=== PATIENT | male | born 1960 | race Caucasian/White ===

== ENCOUNTER → 2020-03-09 09:44 | Outpatient (CLI) | payer BC | END | disposition home or self-care (01) | LOC: D.HCCARDIO 09:44 | PROVIDERS: ATTEND Internal Medicine Cardiovascular Disease | DX: I20.9 Angina pectoris, unspecified (principal) ==

== ENCOUNTER 2020-03-22 07:06 | Day surgery (SDC) | payer BC ==
[~2020-03-22] VITALS: Ht 172.7 cm; Wt 106.6 kg
--- NOTE | ~2020-03-22 | HEMODYNAMI ---
PATIENT:ERIC BLOOD MEDICAL RECORD: [id number] : 60 LOCATION:[facility] ADMISSION DATE: 03/22/20 Generatedon:03/22/20209:33 Patient name: ERIC BLOOD Patient #: [id number] SSN: [id number] : 1960 Date of study: 03/22/2020 Page: Of Hemodynamic Procedure Report Patient Data Patient Demographics Procedure consent was obtained First Name: ERIC Gender: Male Last Name: CAITIE : 1960 [facility] Initial: BISHNU Age: 59 year(s) Patient #: [id number] Race: SSN: [id number] Additional ID: [id number] Contact details Address: [address] [place] [address] lane State: [place] City: [place] Zip code: [address] Admission Admission Data Admission Date: 03/22/2020 Admission Time: 7:06 Arrival Date: 03/22/2020 Arrival Time: 0:00 Admit Source: Other Insurance Payor: Private health insurance [facility] #: [id number] Height (in.): 68 BSA: 2.2 (m2) Height (cm.): 172.72 BMI: 36.19 (kg/m2) Weight (lbs.): 238 Weight (kg.): 107.95 Lab Results Lab Result Date: 03/22/2020 Lab Result Time: 0:00 Biochemistry Name Units Result Min Max BUN mg/dl 17 --(---*)-- 7 18 Creatinine mg/dl 1 --(--*-)-- 0.6 1.3 CBC Name Units Result Min Max Hemoglobin g/dl 16.3 --(--*-)-- 13.5 17.5 Procedure Procedure Types Cath Procedure Diagnostic Procedure [facility] w/Coronaries Sedation Charges Moderate Sedation up to 15 minutes Procedure Description Procedure Date Procedure Date: 03/22/2020 Procedure Start Time: 9:20 Procedure End Time: 9:32 Procedure Staff Name Function Dmitri Mcneill MD Performing Physician Kristin PETERSON Monitor Debbie Moreland RT Scrub Yin King RN Nurse Procedure Data Cath Procedure Fluoroscopy Diagnostic fluoroscopy Total fluoroscopy Time: 1.7 time: 1.7 min min Diagnostic fluoroscopy Total fluoroscopy dose: 726 dose: 726 mGy mGy Contrast Material Contrast Material Type Amount (ml) Isovue 300 64 Entry Location Entry Primary Successful Side Size Upsize Upsize Entry Closure Succes sful Closure Location (Fr) 1 (Fr) 2 (Fr) Remarks Device Remarks Femoral Right 5 Fr Exoseal artery Estimated blood loss: 5 ml Diagnostic catheters Device Type Used For End Catheter Placement MULTIPACK JL 4.0 5Fr Left Coronary catheter Angiography MULTIPACK 3DRC 5Fr Right Coronary catheter Angiography MULTIPACK Pigtail 5 Fr LV Angiography catheter Procedure Complications No complications Procedure Medications Medication Administration Route Dosage Oxygen etCO2 Nasal cannula 2 l/min Lidocaine 2% added to field 20 Heparin Flush Bag added to field 2 bags (1000units/500ml NS) 0.9% NaCl I.V. 100 ml/hr Versed I.V. 2 mg Fentanyl I.V. 50 mcg Versed I.V. 1 mg Fentanyl I.V. 50 mcg Versed I.V. 1 mg Fentanyl I.V. 50 mcg Fentanyl I.V. 50 mcg Hemodynamics Rest BSA: 2.2 (m2) HGB: 16.3 (g/dl) O2 Consumption: Estimated: 269.88 (ml/min) O2 Con sumption indexed: Estimated:122.67 (ml/min/m) Heart Rate: 83 (bpm) Pressure Samples Time Site Value (mmHg) Purpose Heart Use Rate(bpm) 9:28 LV 137/-4,19 Snapshot 86 Gradients Valve Time Site Site Mean SEP/DFP Peak To Heart Use 1 2 (mmHg) (sec/min) Peak Rate (mmHg) (bpm) Aortic 9:28 LV AO 84 Snapshots Pre Cath Intra NCS Post Cath Vital Signs Time Heart Resp SPO2 etCO2 NIBP (mmHg) Rhythm Pain Sedation Rate (ipm) (%) (mmHg) Status Level (bpm) 8:57:46 76 12 96 33.9 130/75(104) NSR 0 (11) 10(A) , No pain 9:02:06 84 17 93 13.5 125/78(100) NSR 0 (11) 10(A) , No pain 9:06:22 81 15 94 36.2 118/78(101) NSR 0 (11) 10(A) , No pain 9:11:07 78 15 95 32.4 124/77(95) NSR 0 (11) 10(A) , No pain 9:15:25 84 13 93 33.9 119/73(96) NSR 0 (11) 10(A) , No pain 9:19:39 83 12 94 0 118/81(101) NSR 0 (11) 9(A) , No pain 9:23:51 83 16 93 35.4 122/82(101) NSR 0 (11) 9(A) , No pain 9:28:03 84 16 93 33.1 131/84(105) NSR 0 (11) 10(A) , No pain 9:32:15 86 19 94 40.7 131/85(99) NSR 0 (11) 10(A) , No pain Medications Time Medication Route Dose Verified Delivered Reason Notes Effe ctiveness by by 9:00:07 0.9% NaCl I.V. 100 Dmitri Buffie Per ml/hr Osito King RN physician 9:00:47 Oxygen etCO2 2 Dmitri Buffie used for Nasal l/min Osito King RN procedure cannula 9:00:53 Lidocaine 2% added 20ml Dmitri Dmitri for local to vial Osito Mcneill MD anesthetic field 9:00:59 Heparin Flush added 2 Dmitri Dmitri used for Bag to bags Osito Mcneill MD procedure (1000units/500ml field NS) 9:06:27 Versed I.V. 2 mg Dmitri Buffie for Osito King RN sedation 9:06:32 Fentanyl I.V. 50 Dmitri Buffie for mcg sOito King RN sedation 9:11:47 Versed I.V. 1 mg Dmitri Buffie for Osito King RN sedation 9:12:00 Fentanyl I.V. 50 Dmitri Buffie for mcg Osito King RN sedation 9:16:11 Versed I.V. 1 mg Dmitri Buffie for Osito King RN sedation 9:22:37 Fentanyl I.V. 50 Dmitri Buffie for mcg Osito King RN sedation 9:28:38 Fentanyl I.V. 50 Dmitri Buffie for mcg Osito King RN sedation Procedure Log Time Note 8:28:05 Informed consent obtained and on chart 8:29:28 Diagnostic Cath Status : Elective 8:29:44 Arrival Date: 03/22/2020 12:00:00 AM 8:29:46 Admit Source: Other 8:29:48 Insurance Payor : Private health insurance 8:30:53 Patient Height : 68 inches 8:30:57 Patient Weight : 238 lbs 8:31:37 Procedure Status Elective Heart Cath (OP). 8:31:40 Time tracking: Regular hours (M-F 7:00 - 5:00) 8:31:44 Plan of Care:Hemodynamics will remain stable., Cardiac rhythm will remain stable., Comfort level will be maintained., Respiratory function will remain adequate., Patient/ family verbilizes understanding of procedure., Procedure tolerated without complication., Recovers from procedure without complications.. 8:31:54 H&P Date Dictated: 02/19/2020 Within 30 days and on chart.. 8:31:57 Pre-procedure instructions explained to patient. 8:31:57 Pre-op teaching completed and patient verbalized understanding. 8:31:59 Family unavailable. 8:32:01 Patient NPO since Midnight. 8:40:21 Yin King RN sent for patient. Start room use. 8:48:17 Patient received from Pre/Post Procedure Room to CCL 2 Alert and oriented. Tansferred to table in Supine position. 8:48:18 Warm blankets applied, and abdi hugger turned on for patient comfort. 8:48:18 Correct patient and procedure confirmed by team. 8:48:19 ECG and BP/O2 sat monitors applied to patient. 8:56:37 Vital chart was started 8:59:33 Baseline sample Acquired. 9:00:07 0.9% NaCl 100 ml/hr I.V. was administered by Yin King RN; Per physician; Verbal order read back and verified. 9:00:47 Oxygen 2 l/min etCO2 Nasal cannula was administered by Yin King RN; used for procedure; Verbal order read back and verified. 9:00:53 Lidocaine 2% 20ml vial added to field was administered by Dmitri Mcneill MD; for local anesthetic; Verbal order read back and verified. 9:00:59 Heparin Flush Bag (1000units/500ml NS) 2 bags added to field was administered by Dmitri Mcneill MD; used for procedure; Verbal order read back and verified. 9::22 Rhythm: sinus tachycardia 9:01:24 Full Disclosure recording started 9:02:09 Is the patient allergic to Iodine/contrast media? No. 9:02:10 Was the patient premedicated? Yes 9:02:12 Is patient on blood thinner?No 9:02:13 Patient diabetic? Yes. 9:02:14 If diabetic: On Metformin? No 9:02:16 Previous problem with sedation/anesthesia? No ? 9:02:18 Snore? Yes 9:02:18 Sleep apnea? Yes 9:02:20 Deviated septum? No 9:02:20 Opens mouth fully? Yes 9:02:21 Sticks out tongue? Yes 9:02:37 Airway obstruction? Yes ASTHMA 9:02:47 Dentures? No ? 9:02:50 Pre procedure: right dorsailis pedis pulse 2+ Normal; easily identifiable; not easily obliterated 9:02:54 Pre procedure: left dorsailis pedis pulse 1+ Palpable, but thready & weak; easily obliterated 9:02:57 Patient pain scale 0/10 ?. 9:03:02 IV patent on arrival in left forearm with 0.9% NaCl at KVO. 9:03:04 Lab results completed and on chart. 9:03:23 Right groin area was prepped with chlora-prep and draped in sterile fashion 9:03:24 Alarms reviewed by R. N. 9:03:24 Sharps counted by scrub and verified by R.N. 9:04:10 Physician arrived 9:04:10 --------ALL STOP TIME OUT------ 9:04:10 Final Timeout: patient, procedure, and site verified with staff and physician. All members of the team are in agreement. 9:04:12 Right groin site verified by team. 9:04:15 Fire Safety Assessment: A--An alcohol-based skin anteseptic being used preoperatively., C--Open oxygen or nitrous oxide is being used., D--An ESU, laser, or fiber-optic light is being used. 9:04:18 Physical assessment completed. ASA score P 2 - A patient with mild systemic disease as per Dmitri Mcneill MD. 9:06:27 Versed 2 mg I.V. was administered by Yin King RN; for sedation; Verbal order read back and verified. 9:06:32 Fentanyl 50 mcg I.V. was administered by Yin King RN; for sedation; Verbal order read back and verified. 9:10:14 2) 60-89 Mildly reduced kidney function, and other findings (as for stage 1) point to kidney disease. 9:10:31 Maximum allowable contrast dose (3.7 X eGFR X 0.75)224 ml. 9:10:35 Sedation plan: IV Moderate Sedation Medication:Versed, Fentanyl 9:10:42 Use device set Femoral Dx 9:10:43 ACIST Syringe (20887) opened to sterile field. 9:10:43 Bag Decanter (2002S) opened to sterile field. 9:10:44 Medline Cath Pack ([id number]) opened to sterile field. 9:10:45 ACIST Hand Control (37830) opened to sterile field. 9:10:45 ACIST Manifold (04912) opened to sterile field. 9:10:45 DIAGNOSTIC Multipack 5Fr catheter set (ME2378) opened to sterile field. 9:10:46 Tegaderm 4 x 4 (1626W) opened to sterile field. 9:10:48 SHEATH 5FR Sears (JRN391) opened to sterile field. 9:10:48 EMERALD Guide Wire (497-707) opened to sterile field. 9:11:33 Lab Result : Hemoglobin 16.3 g/dl 9:11:33 Lab Result : Creatinine 1 mg/dl 9:11:33 Lab Result : BUN 17 mg/dl 9:11:47 Versed 1 mg I.V. was administered by Yin King RN; for sedation; Verbal order read back and verified. 9:12:00 Fentanyl 50 mcg I.V. was administered by Yin King RN; for sedation; Verbal order read back and verified. 9:13:13 Zero performed for pressure channel P1 9:16:11 Versed 1 mg I.V. was administered by Yin King RN; for sedation; Verbal order read back and verified. 9:20:33 Procedure started. 9:20:36 Local anesthetic to right femoral artery with Lidocaine 2% by Dmitri Mcneill MD.INITIAL ACCESS ONLY 9:22:20 A 5 Fr sheath was inserted into the Right Femoral artery 9::37 Fentanyl 50 mcg I.V. was administered by Yin King RN; for sedation; Verbal order read back and verified. 9:23:07 A MULTIPACK JL 4.0 5Fr catheter was advanced over the wire and used for Left Coronary Angiography. 9::43 LCA angiography performed. 9::46 Injector settings: Ml/sec: 3, Volume: 6, 9:24:52 Catheter removed. 9::57 A MULTIPACK 3DRC 5Fr catheter was advanced over the wire and used for Right Coronary Angiography. 9:26:30 RCA angiography performed. 9::34 Injector settings: Ml/sec: 3, Volume: 6, 9::43 Catheter removed. 9::42 A MULTIPACK Pigtail 5 Fr catheter was advanced over the wire and used for LV Angiography. 9::31 LV hemodynamics recorded. 9::32 LV gram done using GUY 9::34 Injector settings: Ml/sec: 5, Volume: 15, 9:28:38 Fentanyl 50 mcg I.V. was administered by Yin King RN; for sedation; Verbal order read back and verified. 9::43 EF : 60 % 9:28:54 Catheter removed. 9:28:55 EXOSEAL 5Fr (EX500) opened to sterile field. 9:29:04 Sheath removed intact; hemostasis achieved with Exoseal to the Right Femoral artery. 9:30:00 Procedure ended.(Physican Out) 9:30:38 Fluoroscopy time 01.70 minutes. 9:30:41 Fluoroscopy dose: 726 mGy 9:30:41 Flurop Dose total: 726 9:30:46 Dose Area Product 53133 mGy/cm. 9:30:49 Contrast amount:Isovue 300 64ml. 9:30:51 Maximum allowable dose exceeded? No. 9:30:52 Sharps counted by scrub and verified by R.N. 9:30:53 Insertion/operative site no bleeding no hematoma. 9:30:56 Post-op/insertion site Right Femoral artery dressed using a 4 x 4 and Tegaderm. 9:30:59 Post procedure rhythm: unchanged. 9:31:02 Estimated blood loss: 5 ml 9:31:04 Post procedure instruction explained to patient.Patient verbalizes understanding. 9:31:05 Patient needs reinforcement of post procedure teaching. 9:31:50 Procedure type changed to Cath procedure, Diagnostic procedure, [facility], [facility] w/Coronaries, Sedation Charges, Moderate Sedation up to 15 minutes 9:31:52 Procedure and supply charges have been captured, reviewed, submitted and are correct. 9:31:56 Procedure Complication : No complications 9:31:59 Vital chart was stopped 9:32:00 [facility] Findings: mild to moderate CAD (<70%) 9:32:02 Operative report dictated upon procedure completion. 9:32:02 See physician's report for complete and final results. 9:32:04 Report given to Pre/Post Procedure Room. 9:32:06 Patient transfered to Pre/Post Procedure Room with Stretcher. 9:32:08 Procedure ended. 9:32:08 Full Disclosure recording stopped 9:32:13 End room use (Document Last) 9:32:57 End room use (Document Last) 9:33:15 End room use (Document Last) Device Usage Item Name Manufacture Quantity Catalog Hospital Part Current Minimal L ot# / Number Charge Number Stock Stock Serial# Code ACIST Acist 1 68617 610348 646116 692724 20 Syringe Medical (00099) Systems Inc Bag Microtek 1 2001S 574214 15054 745423 5 Decanter Medical Inc. () Medline Medline 1 [id number] 459973 22861 402471 5 Cath Pack ([id number]) ACIST Hand Acist 1 91780 002877 374415 304151 5 Control Medical (19842) Systems Inc ACIST Acist 1 96329 370578 809437 921665 5 Manifold Medical (49138) Systems Inc DIAGNOSTIC Cardinal 1 RM6001 823832 16847 637594 30 Multipack Sensors for Medicine and Science 5Fr catheter set (GW5874) Tegaderm 4 3M 1 1626W 431576 631643 516084 5 x 4 (1626W) SHEATH 5FR Terumo 1 [id number] 701584 095986 734353 5 Sears (EGO247) EMERALD Cardinal 1 502-455 223892 540376 580551 5 Guide Wire [facility] (729-055) MULTIPACK Cardinal 1 557427 5 JL 4.0 5Fr Health catheter MULTIPACK Cardinal 1 963369 5 3DRC 5Fr Health catheter MULTIPACK Cardinal 1 961774 5 Pigtail 5 Health Fr catheter EXOSEAL 5Fr Cardinal 1 EX500 710784 229159 963329 10 (EX500) Health Signature Audit Bradley Stage Time Signature Unsigned Intra-Procedure 03/22/2020 Kristin Parra 9:32:57 AM RT(R) Intra-Procedure 03/22/2020 Yin King RN 9:33:15 AM Intra-Procedure 03/22/2020 Dmitri Mcneill MD 9:33:31 AM Signatures Performing Physician : Signature : Dmitri Mcneill MD Date : Time : Monitor : Kristin Parra RT Signature : Date : Time : Nurse : Yin King RN Signature : Date : Time : [address] [place] [address]
[2020-03-22] MEDS ORDERED: TRICOR145 MG PO ×2 (08:08→08:11)
[2020-03-22] MEDS ORDERED: SINGULAIR10 MG PO (08:08)
[2020-03-22] MEDS ORDERED: TOPROL XL25 MG PO (08:08)
[2020-03-22] MEDS ORDERED: JARDIANCE10 MG PO (08:08)
[2020-03-22] MEDS ORDERED: OMEPRAZOLE40 MG PO (08:08)
[2020-03-22] MEDS ORDERED: SYNTHROID150 MCG PO (08:09)
[2020-03-22] MEDS ORDERED: VALSARTAN-HCTZ1 EAC4 PO (08:09)
[2020-03-22] MEDS ORDERED: LIPITOR40 MG PO (08:10)
[2020-03-22] MEDS ORDERED: OZEMPIC1 MG/0.75 SC (08:12)
[2020-03-22] MEDS ORDERED: CETIRIZINE HCL5 M1 PO (08:12)
[2020-03-22] MEDS ORDERED: CEREFOLIN TAB1 TAB PO (08:13)
[2020-03-22] MEDS ORDERED: CO Q-10200 MG PO (08:13)
[2020-03-22] MEDS ORDERED: FISH OIL 1,0001 CA1 PO (08:13)
[2020-03-22] MEDS ORDERED: VITAMIN D2000 UNI1 PO (08:13)
[2020-03-22] MEDS ORDERED: OMEGA-3100 MG PO (08:14)
[2020-03-22] MEDS ORDERED: BAYER CHEWABLE81 MG PO (08:14)
[2020-03-22] MEDS ORDERED: STELARA (08:14)
[2020-03-22 08:29] VITALS: BP 127/80; Ht 172.7 cm; Wt 106.6 kg
[2020-03-22 08:34] LABS: BASOPHILS 0.4 % (0-2); EOSINOPHILS 4.2 % (0-7); HEMATOCRIT 47.7 % (42.0-54.0); HEMOGLOBIN 16.3 g/dL (13.5-17.5); IMMATURE GRANULOCYTES 0.3 % (0-5); MCHC 34.2 g/dL (31.0-37.0); MCV 90.7 fL (80.0-100.0); MEAN PLATELET VOLUME 9.9 fL (7.4-10.4); MONOCYTES 8.1 % (2-11); PLATELET COUNT 198 10x3/uL (130-400); RBC 5.26 10x6/uL (4.20-6.10); RDW 13.3 % (11.5-14.5); WBC 9.5 10x3/uL (4.8-10.8)
[2020-03-22 08:46] LABS: ALT (SGPT) 53 U/L (10-68); CALC OSMOLALITY 278 mosm/kg (275-300); CALCIUM 9.2 mg/dL (8.5-10.1); CARBON DIOXIDE 26.3 mmol/L (21.0-32.0); CHLORIDE - SERUM 103 mmol/L (98-107); CHOL - HDL RATIO 5.4 ratio (2.3-4.9); CHOLESTEROL, TOTAL 150 mg/dL (0-200); GLUCOSE 150 mg/dL (74-106); HDL CHOLESTEROL 28 mg/dL (32-96); LDL CHOLESTEROL 54 mg/dL (0-100); LDL-HDL RATIO 1.9 ratio (1.5-3.5); POTASSIUM - SERUM 3.8 mmol/L (3.5-5.1); SODIUM 137 mmol/L (136-145); TRIGLYCERIDE 344 mg/dL (30-200); UREA NITROGEN 17 mg/dL (7-18); eGFR NON AFRICAN AMERICAN 81 mL/min (90-120)
--- NOTE | 2020-03-22 09:40 | NUR ---
PT REC'D TO ROOM 4 VIA STRETCHER FROM HEATER FURNACE. MONITORS ESTAB, AT BS. SEE TERRAZZO LAYER. ALARMS ON AND C/L IN REACH.
--- NOTE | 2020-03-22 09:55 | NUR ---
R GROIN SITE SOFT, NO S/S BLEEDING OR HEMATOMA. R LEG/FOOT WARM WITH PALP PULSES. VSS. PT DENIES PAIN OR NEEDS.
--- NOTE | 2020-03-22 10:25 | NUR ---
DR. AGUDELO UPDATED PT AND AT BS. R GROIN SITE SOFT, NO S/S BLEEDING OR HEMATOMA. PULSES PALP. VSS. C/L IN REACH.
--- NOTE | 2020-03-22 10:40 | NUR ---
R GROIN SITE SOFT, NO S/S BLEEDING OR HEMATOMA. PULSES PALP. R LEG/FOOT WARM. VSS. PT DENIES PAIN OR NEEDS. WILL GRADUALLY ELEVATE HOB PER ORDERS. AT BS. C/L IN REACH.
--- NOTE | 2020-03-22 10:55 | NUR ---
R GROIN SITE SOFT, C/D/I. HOB ELEVATED AND SANDWICH TRAY/COLA PROVIDED. VSS. C/L IN REACH.
--- NOTE | 2020-03-22 11:15 | NUR ---
PT ATE ALL OF SANDWICH, VSS. R GROIN SITE SOFT, NO S/S BLEEDING OR HEMATOMA. PULSES PALP. C/L IN REACH.
--- NOTE | 2020-03-22 11:33 | NUR ---
ALL DISCHARGE INSTRUCTIONS REVIEWED WITH PT AND , INCLUDING RESTRICTIONS, MEDS AND F/U APPT. BOTH VERBALIZE UNDERSTANDING.
--- NOTE | 2020-03-22 11:42 | NUR ---
R GROIN SITE C/D/I. PIV D/C'D INTACT, DSG APPLIED. PT ALLOWED UP TO GET DRESSED AND GO TO BR INDEPENDENTLY.
--- NOTE | 2020-03-22 11:50 | NUR ---
PT D/C'D VIA WC TO PRIVATE VEHICLE WITH ALL PAPERWORK AND BELONGINGS.
== END 2020-03-22 11:50 | disposition home or self-care (01) ==
LOC: D.CATH 07:06
PROVIDERS: ATTEND Internal Medicine Cardiovascular Disease
DX: I20.9 Angina pectoris, unspecified (principal); R94.39 Abnormal result of other cardiovascular function study; R07.9 Chest pain, unspecified